=== PATIENT | male | born 1995 | race Asian ===

== ENCOUNTER 2018-01-07 13:44 | Emergency (ER) | payer OTHER ==
[~2018-01-07] VITALS: Ht 170.2 cm; Wt 60.1 kg
[2018-01-07] MEDS ORDERED: NORCO 5/3251 TABLET PO (16:18)
[2018-01-07 16:37] VITALS: BP 126/78
== END 2018-01-07 16:38 | disposition home or self-care (01) ==
LOC: EME 13:44
PROC: 0RSKXZZ Reposition Left Shoulder Joint, External Approach (ICD-10-PCS; principal; 2018-01-07)
DX: S43.085A Other dislocation of left shoulder joint, initial encounter (principal); X50.9XXA Other and unspecified overexertion or strenuous movements or postures, initial encounter; Y92.003 Bedroom of unspecified non-institutional (private) residence as the place of occurrence of the external cause
CPT/HCPCS: 73030; 99281; 99285